=== PATIENT | male | born 1960 | race Caucasian/White ===

== ENCOUNTER 2021-12-20 18:07 | Emergency (ER) | payer BC, SELFPAY ==
--- NOTE | 2021-12-20 18:09 | ED.SKABFB ---
HPI - Skin/Abscess/Foreign Bdy General Chief complaint: Skin/Abscess/Foreign Body Stated complaint: Rash Time Seen by Provider: 12/20/21 18:09 Source: patient Mode of arrival: ambulatory Limitations: no limitations History of Present Illness HPI narrative: Mr. Suárez is a 61-year-old male patient presenting to the clinic today with complaints of a rash x2 weeks. He reports he was cutting out some [place] IV approximately 2 weeks ago and developed a rash and the rash is gradually gotten worse. He reports he has rash on his left side, bilateral arms, and bilateral legs. What brought him to the express care today was some swelling to the right forearm. He denies any pain currently Related Data Allergies Allergy/AdvReac Type Severity Reaction Status Date / Time No Known Allergies Allergy Verified 12/20/21 18:24 Review of Systems Review of Systems: Pertinent positives per HPI. Patient denies any fever, chills, headache, visual changes, dizziness, cough, runny nose, sore throat, shortness of breath, chest pain, palpitations, nausea, vomiting, diarrhea, constipation, abdominal pain, or any urinary issues. PMFSH Comments At the time of my signature, I reviewed and agree with the nursing past medical, surgical, social, and family history. There is no relevant family history pertinent to the patient complaint. Exam Narrative: General: Well-developed, well nourished, in no apparent distress Head: Normocephalic, atraumatic. Cardio: Regular rate and rhythm, s1 and s2 normal, no murmur appreciated. Resp: Clear to auscultation bilaterally, no rhonchi, rales, wheezing or rubs. Integumentary: [place], warm, and dry, intact without lesion, red raised itchy rash to the bilateral arms, bilateral legs, and left side-rash appears to be a contact dermatitis rash with swelling and mild induration to the right forearm without erythema Course Course Emergency Course: Portions of this record may have been created with voice recognition software. Level of Care: Express Care Visit Vital Signs Vital signs: Vital signs reviewed MDM - Skin/Abscess/Foreign Bdy MDM Narrative Medical decision making narrative: At the time of visit patient is resting comfortably on the exam table. I suspect the patient has contact dermatitis due to plant. I will give him a prescription for some prednisone and triamcinolone cream. Supportive measures were discussed with the patient he voiced understanding of discharge instructions and agrees to treatment plan. Differential Diagnosis Differential diagnosis: Likely abscess of skin or subcutaneous tissue, urticaria, cellulitis, eczema, insect bites and contact dermatitis Discharge Plan Discharge Clinical Impression: Allergic contact dermatitis due to plant Patient Disposition: Home, Self-Care Condition: Stable Instructions: Antibiotic Form, Contact Dermatitis (ED), Poison [place] (ED) Additional Instructions: Prednisone 40 mg given in the clinic today Take prednisone 40 mg daily as directed Apply triamcinolone cream to the affected areas as directed Increase fluids and stay well-hydrated May take Benadryl 25 to 50 mg every 6 hours as needed for itching May apply cool compresses to affected areas to help alleviate swelling/itching Avoid scratching Avoid hot showers May apply calamine lotion to the affected areas Follow-up with your PCP in 3 to 5 days if symptoms persist or sooner if they worsen Go to the emergency room if you develop any shortness of breath, facial swelling, or any other worsening of condition. Prescriptions: New prednisone 20 mg tablet 40 mg PO DAILY 5 Days Qty: 10 0RF triamcinolone acetonide 0.1 % cream 1 applic topical BID 7 Days Qty: 30 0RF Follow-up/Referrals: UNKNOWN,DOCTOR [Non-Staff] - Time of Disposition: 18:30 Quality NIHSS Nursing Documentation ED NIHSS nursing documentation: reviewed/agree
[2021-12-20 18:18] VITALS: BP 153/88; PULSE 88; RESP 18; TEMP 36.3; O2SAT 97
[2021-12-20] MEDS: predniSONE 20 MG TABLET 40 MG PO (18:28)
== END 2021-12-20 18:33 | disposition home or self-care (01) ==
LOC: EXPTROY 18:14
PROVIDERS: Emergency Provider Nurse Practitioner Family
DX: L23.7 Allergic contact dermatitis due to plants, except food (principal)
CPT/HCPCS: 99203; G0463; J7512